=== PATIENT | male | born 1940 | race Caucasian/White ===

== ENCOUNTER 2018-12-11 10:04 | Inpatient (IN) | payer MEDICARE, OTHER | END 2018-12-17 15:15 | disposition home or self-care (01) | LOC: SSTAY O 10:04 → MED 3N 12-15 10:45 → PCU 3S 12-16 16:25 → CICU 2S 13:58 → SSTAY O 13:30 → CICU 2S 13:30 | PROC: 0211093 Bypass Coronary Artery, Two Arteries from Coronary Artery with Autologous Venous Tissue, Open Approach (ICD-10-PCS; principal; 2018-12-11 14:21) | PROC: 06BQ4ZZ Excision of Left Saphenous Vein, Percutaneous Endoscopic Approach (ICD-10-PCS; 2018-12-11 14:21) | PROC: 5A1935Z Respiratory Ventilation, Less than 24 Consecutive Hours (ICD-10-PCS; 2018-12-11 14:21) | DX: I21.19 ST elevation (STEMI) myocardial infarction involving other coronary artery of inferior wall (principal); I25.10 Atherosclerotic heart disease of native coronary artery without angina pectoris ==

== ENCOUNTER 2018-12-21 11:09 | Emergency (ER) | payer MEDICARE, OTHER ==
[~2018-12-21] VITALS: Ht 167.6 cm; Wt 90.9 kg
[~2018-12-21 11:09] MED LIST: ASPI-1265 PO; ATOR10TA PO; CYAN-19 PO; GABA-532 PO; GLUC-99 PO; HYDR-3972 PO; METO25TA6 PO; MULT-1141 PO; MV-M1TAB19 PO; RANI-366 PO
--- NOTE | 2018-12-21 12:39 | NUR ---
Patient assisted to room from lobby in w/c, stand to pivot to bed. Patient don gown. family at bedside. Dr. Howard at bedside.
[2018-12-21 13:16] LABS: BASOPHILS % (AUTO) 0.4 % (0-1); EOSINOPHILS # (AUTO) 0.2 X10'3 (0-0.9); HEMATOCRIT 31.7 % (42.0-52.0); HEMOGLOBIN 10.7 g/dl (14.0-17.9); LYMPHOCYTES # (AUTO) 1.3 X10'3 (1.1-4.8); LYMPHOCYTES % (AUTO) 16.6 % (21-51); MEAN CORPUSCULAR HEMOGLOBIN 31.1 PG (27.0-31.0); MEAN CORPUSCULAR HGB CONC 33.9 g/dL (33.0-36.5); MEAN CORPUSCULAR VOLUME 91.9 FL (78-98); MEAN PLATELET VOLUME 6.9 FL (7.4-10.4); MONOCYTES # (AUTO) 0.7 X10'3 (0-0.9); MONOCYTES % (AUTO) 9.3 % (2-12); NEUTROPHILS # (AUTO) 5.6 X10'3 (1.8-7.7); NEUTROPHILS % (AUTO) 71.7 % (42-75); PLATELET COUNT 416 X10'3 (140-440); RED BLOOD COUNT 3.45 X10'6 (4.70-6.10); RED CELL DISTRIBUTION WIDTH 13.1 % (11.5-14.5); WHITE BLOOD COUNT 7.8 X10'3 (4.5-11.0)
[2018-12-21 13:32] LABS: ALANINE AMINOTRANSFERASE 26 U/L (12-78); ALBUMIN 3.9 G/DL (3.4-5.0); ALBUMIN/GLOBULIN RATIO 1.1 (1.1-1.5); ALKALINE PHOSPHATASE 109 IU/L (46-116); ANION GAP 12 (8-16); ASPARTATE AMINO TRANSFERASE 31 U/L (10-37); BLOOD UREA NITROGEN 14 MG/DL (7-18); CHLORIDE 99 MMOL/L (99-107); CREATININE 1.08 MG/DL (0.60-1.10); GLUCOSE 118 MG/DL (70-104); POTASSIUM 3.9 MMOL/L (3.5-5.1); SODIUM 136 MMOL/L (135-145); TOTAL CARBON DIOXIDE 24.7 MMOL/L (24-32); TOTAL PROTEIN 7.6 G/DL (6.4-8.2); eGFR 66 ML/MIN
--- NOTE | 2018-12-21 13:33 | NUR ---
vascular at bedside.
[2018-12-21 13:42] LABS: PARTIAL THROMBOPLASTIN TIME 29 SECONDS (22-32); PROTHROMBIN TIME 10.6 SECONDS (9.0-12.0)
--- NOTE | 2018-12-21 14:05 | NUR ---
PATIENT IN A-FIB, DR. CHILD NOTIFIED.
[2018-12-21] MEDS ORDERED: diltiazem 5mg/ml 5ml inj. IV ONE (14:15)
--- NOTE | 2018-12-21 14:42 | NUR ---
WHILE ESTABLISHING IV, PATIENT SELF CONVERTED AND NOW IN NSR. DR. CHILD AWARE AND DECLINED ORDER FOR 3RD EKG.
--- NOTE | 2018-12-21 14:52 | NUR ---
PATIENT ABLE TO STAND AT BEDSIDE AND USE URINAL. URINE SAMPLE COLLECTED AND SENT TO LAB.
[2018-12-21 15:23] LABS: CLARITY,URINE CLEAR (Clear); COLOR,URINE YELLOW (Yellow); GLUCOSE, URINE NEGATIVE (Neg); KETONES,URINE NEGATIVE (Neg); LEUKOCYTE ESTERASE ,URINE NEGATIVE (Neg); NITRITES, URINE NEGATIVE (Neg); OCCULT BLOOD,URINE SMALL (Neg); PROTEIN,URINE NEGATIVE (Neg); UA COLLECTION TYPE CLN CATCH MIDSTREAM; UROBILINOGEN,URINE 0.2 E.U/dL (0.2-1.0)
[2018-12-21 15:37] LABS: MUCUS STRANDS FEW /LPF (Neg); SQUAMOUS EPITHELIAL CELL,UR FEW /LPF (FEW)
[2018-12-21 15:38] LABS: BACTERIA,URINE FEW /HPF (Neg); RBC,URINE 0-2 /HPF (0-2); WBC,URINE NONE SEEN /HPF (0-4)
[2018-12-21] MEDS ORDERED: AMIO200T40 PO (17:03)
[2018-12-21 17:32] VITALS: BP 111/72
== END 2018-12-21 17:34 | disposition home or self-care (01) ==
LOC: ER 11:10
DX: I48.91 Unspecified atrial fibrillation (principal); I25.119 Atherosclerotic heart disease of native coronary artery with unspecified angina pectoris; I10 Essential (primary) hypertension; I25.2 Old myocardial infarction; Z95.1 Presence of aortocoronary bypass graft; Z87.891 Personal history of nicotine dependence; Z79.899 Other long term (current) drug therapy
CPT/HCPCS: 36415; 71045; 80053; 81001; 85025; 85610; 85730; 93005; 93971; 99284; J3490

== ENCOUNTER 2024-12-02 10:25 | Outpatient (CLI) | payer MEDICARE, OTHER ==
[~2024-12-02 10:25] MED LIST changes: +CYAN-104 PO; -CYAN-19 PO; +LOP25T PO; -METO25TA6 PO
== END 2024-12-02 23:59 | disposition home or self-care (01) ==
LOC: VAS 10:25
PROVIDERS: ATTEND Internal Medicine Interventional Cardiology
DX: I65.23 Occlusion and stenosis of bilateral carotid arteries (principal)
CPT/HCPCS: 93880

== ENCOUNTER 2025-04-13 10:32 | Outpatient (CLI) | payer MEDICARE, OTHER ==
--- NOTE | 2025-04-13 13:07 | RADIOLOGY REPORT ---
CLINICAL INDICATION: PAIN IN RIGHT KNEE PAIN TECHNIQUE: 4 radiographic views of the right knee were obtained. Comparison: None FINDINGS/IMPRESSION: There is no evidence of acute fracture or dislocation. Moderate tricompartmental knee joint osteoarthrosis. Trace right knee joint effusion.
--- NOTE | 2025-04-13 17:43 | CARDIOLOGY REPORT ---
APPROVED REPORT EXAM: Comprehensive 2D, Doppler, and color-flow Echocardiogram. 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 292.0 cm/s AoV VTI 43.6 cm AO Peak GR. 21.7 mmHg AO Mean GR. 9 mmHg LVOT VTI 23.20 cm LVOT Peak Teddy. 99.0 cm/s TOÑITO(VTI)/BSA 1.70 cm2/m2 TOÑITO (VTI) 1.70 cm2 Mitral Valve MV E Velocity 66.1 cm/s MV DECEL TIME 263 ms MV A Velocity 83.4 cm/s MV PHT 82 ms E/A Ratio 0.8 MVA (PHT) 2.69 cm2 TDI E/Medial E' 11.0 Tricuspid Valve TR P. Velocity 176 cm/s RAP ESTIMATE 10 mmHg TR Peak Gr. 12 mmHg RVSP 22 mmHg LEFT VENTRICLE Normal LV size and wall thickness. Overall systolic function is normal. LVEF is 60-65%. RIGHT VENTRICLE RV is normal size and function. ATRIA The left atrium size is normal. AORTIC VALVE Trileaflet AV appears mildly sclerotic with mild stenosis. TOÑITO is measured at 1.70 cmsq. Peak / mean gradients of 22 / 9 mmHG. Peak velocity is measured at 2.92 m/sec. Right and non coronary cusps appea r partially fused together. Trivial insufficiency. MITRAL VALVE Mild mitral annular calcification without stenosis. Trace regurgitation. TRICUSPID VALVE The tricuspid valve is normal in structure with trace regurgitation. PULMONIC VALVE The pulmonary valve is normal in structure with physiologic insufficiency. GREAT VESSELS The aortic root is normal in size. The ascending aorta is normal in size. The IVC is normal in size a nd collapses >50% with inspiration. PERICARDIUM Normal pericardium. No effusion. Other Information Study Quality: Adequate Conclusion Normal LV size and wall thickness. Overall systolic function is normal. LVEF is 60-65%. RV is normal size and function. The left atrium size is normal. Trileaflet AV appears mildly sclerotic with mild stenosis. TOÑITO is measured at 1.70 cmsq. Peak / mean gradients of 22 / 9 mmHG. Peak velocity is measured at 2.92 m/sec. Right and non coronary cusps nay ear partially fused together. Trivial insufficiency. Mild mitral annular calcification without stenosis. Trace regurgitation. The tricuspid valve is normal in structure with trace regurgitation. Normal pericardium. No effusion.
== END 2025-04-13 23:59 | disposition home or self-care (01) ==
LOC: RAD 10:32
PROVIDERS: ATTEND Internal Medicine Interventional Cardiology
DX: M17.11 Unilateral primary osteoarthritis, right knee (principal); R06.02 Shortness of breath; I08.8 Other rheumatic multiple valve diseases
CPT/HCPCS: 73564; 93306